=== PATIENT | female | born 1950 | race Caucasian/White ===

== ENCOUNTER 2016-07-01 07:50 | Day surgery (SDC) | payer MEDICARE, OTHER ==
[~2016-07-01] VITALS: Ht 167.6 cm; Wt 92.0 kg
[~2016-07-01 07:50] MED LIST: 0.9% Sodium Chloride 1,000 ML IV SCH; CHOL100045 PO; GABA-504 PO; LISI10TA PO; Sodium Chloride LOK Flush 10 mL Syringe IV PRN; VENL75TA3 PO; fentaNYL-PF 50 mCg/mL 2 mL Inj IVPUSH PRN
[2016-07-01 08:07] VITALS: BP 144/81; PULSE 99; RESP 14; O2SAT 97
[2016-07-01 09:05] VITALS: BP 144/82; PULSE 76; RESP 16; O2SAT 98
[2016-07-01 09:15] VITALS: BP 140/83; PULSE 78; RESP 16; O2SAT 97
[2016-07-01 09:25] VITALS: BP 130/78; PULSE 72; RESP 16; O2SAT 97
--- NOTE | 2016-07-01 09:33 | ENDO ---
[address] [address] ENDOSCOPY PROCEDURE PATIENT: CLARISSA STEINER : 1950 MR#: [id number] ADMIT: 07/01/2016 JOB ID: [id number] DATE: 07/01/2016 PROCEDURE: Colonoscopy. INDICATIONS: Screening. The patient's ASA classification is 2. Mallampati score is 2. MEDICATIONS: 1. Versed 4 mg. 2. Fentanyl 75 mcg. INSTRUMENT USED: PCF H 180 AL. PREPARATION QUALITY: Was fair. PROCEDURE DETAILS: After informed consent was obtained, the patient was brought into the GI suite, where she was placed on oxygen via nasal cannula and monitored with continuous pulse oximeter, telemetry and blood pressure monitoring. A time-out was performed. Then, she was placed in the left lateral decubitus position and medications were administered for sedation. A digital rectal examination was performed and was unremarkable. The colonoscope was then inserted into the rectum and advanced under direct visualization to the cecum, which was identified by the presence of the ileocecal valve and appendiceal orifice. Once the cecum was reached, the colonoscope was withdrawn back into the rectum as the mucosa and lumen were examined. In the rectum, retroflexion was performed. Following retroflexion, remaining air in the rectum was suctioned, and procedure was completed. FINDINGS: 1. In the ascending colon, there was an approximately 8 mm flat polyp. The polyp was lifted using normal saline and then removed with a hot snare. 2. In the distal ascending colon, there was a diminutive polyp that was removed with cold biopsy forceps. 3. In the transverse colon, there was an approximately 5 mm polyp that was removed with cold biopsy forceps. 4. In the sigmoid colon, there were four polyps that ranged from diminutive to approximately 5 mm that were removed with combination of cold biopsy forceps and cold snare. 5. Retroflexed views in the rectum were unremarkable. IMPRESSION: 1. One distal ascending colon polyp. 2. Transverse colon polyp. 3. Four sigmoid polyps. RECOMMENDATIONS: 1. Avoid nonsteroidal anti-inflammatory drugs and anticoagulants for 72 hours. 2. Repeat colonoscopy pending polyp pathology results. COMPLICATIONS: None. ESTIMATED BLOOD LOSS: Less than 5 mL.
--- NOTE | 2016-07-02 12:04 | PATH ---
SURGICAL PATHOLOGY Attending Physician:Dmitriy Spears CASE STATUS: Signed Out PATIENT NAME: CLARISSA STEINER PID: [id number] : 1950 DATE COLLECTED:07/01/2016 15:38 SPECIMEN: 1: Colon, Biopsy 2: Colon, Biopsy 3: Colon, Biopsy 4: Colon, Biopsy CLINICAL HISTORY: A: ASCENDING POLYP B: DISTAL ASCENDING POLYP C: TRANSVERSE POLYP D: SIGMOID POLYP FINAL DIAGNOSIS: 1.ASCENDING COLON POLYP: SESSILE SERRATED ADENOMA. 2.DISTAL ASCENDING COLON POLYP: TUBULAR ADENOMA. 3.TRANSVERSE COLON POLYP: SESSILE SERRATED ADENOMA. 4.SIGMOID COLON POLYP: SESSILE SERRATED ADENOMA. ICD10 CODE D12.6 GROSS DESCRIPTION: The specimen is received in four formalin filled containers labeled with the patient's name. 1). The specimen is sublabeled "ascending polyp" and consists of 2 portions of tissue which aggregate to 0.8 x 0.6 x 0.4 CM. The smallest portion is entirely submitted. The largest portion is trisected and entirely submitted in the same cassette. 2). The specimen is sublabeled "distal ascending polyp" and consists of 2 portions of tissue which aggregate to 0.3 x 0.3 x 0.2 CM. The specimen is entirely submitted in cassette 2A. 3). The specimen is sublabeled "transverse polyp" and consists of 2 portions of tissue which aggregate to 0.3 x 0.3 x 0.2 CM. The specimen is entirely submitted in cassette 3A. 4). The specimen is sublabeled "sigmoid polyp" and consists of 4 portions of tissue which aggregate to 0.5 x 0.5 x 0.4 CM. The specimen is entirely submitted in cassette 4A. 07/01/2016 DAC MICRO DESCRIPTION: See diagnosis. ICD-9 CODES: CPT CODES: 1: 70228 2: 89106 3: 56023 4: 02383 Electronically Signed Out Real Rhodes MD [facility] [address], [place] [address] Technical component performed at [facility], [facility] [address], [place], [address]
== END 2016-07-01 23:59 | disposition home or self-care (01) ==
LOC: END 07:50
PROVIDERS: ATTEND Internal Medicine Gastroenterology
DX: Z12.11 Encounter for screening for malignant neoplasm of colon (principal); D12.2 Benign neoplasm of ascending colon; D12.3 Benign neoplasm of transverse colon; D12.5 Benign neoplasm of sigmoid colon; Z83.71 Family history of colonic polyps; I10 Essential (primary) hypertension; M17.31 Unilateral post-traumatic osteoarthritis, right knee; M79.7 Fibromyalgia; E78.5 Hyperlipidemia, unspecified; F41.9 Anxiety disorder, unspecified; G25.81 Restless legs syndrome
CPT/HCPCS: 45385; 88305; J2250; J7030